=== PATIENT | male | born 1985 | race Caucasian/White ===

== ENCOUNTER 2018-11-24 20:04 | Emergency (ER) | payer OTHER ==
[~2018-11-24] VITALS: Ht 180.3 cm; Wt 60.7 kg
[2018-11-24 20:29] VITALS: BP 129/78
[2018-11-24] MEDS ORDERED: DexAMETHasone SOD PHOS 10MG/1ML VIAL INJ IM ONE (21:45)
[2018-11-24] MEDS ORDERED: HYDROcodone-ACET 10/325MG TAB PO ONE (21:45)
== END 2018-11-24 21:51 | disposition home or self-care (01) ==
LOC: ER 20:04
DX: M23.92 Unspecified internal derangement of left knee (principal)
CPT/HCPCS: 29505; 73562; 96372; 99283; J1100